=== PATIENT | male | born 1960 | race Caucasian/White ===

== ENCOUNTER 2018-08-03 05:38 | Inpatient (IN) | payer BC, OTHER ==
[2018-08-03] VITALS (8 sets, daily range): BP systolic 124–165; BP diastolic 76–94
[~2018-08-03] VITALS: Ht 177.8 cm; Wt 90.2 kg
[2018-08-03] MEDS ORDERED: LIPI20TA PO (05:43)
[2018-08-03] MEDS ORDERED: gas x PO (05:43)
[2018-08-03] MEDS ORDERED: ONDANSETRON 4MG/2ML VIAL (J2405) IV ONE ×2 (06:30→07:15)
[2018-08-03] MEDS ORDERED: NS 1,000 ML IV ONE ×3 (06:30→09:00)
[2018-08-03 06:45] LABS: BASO % 0.3 % (0.0-1.0); HEMOGLOBIN 15.9 g/dl (13.5-17.5); LYMPH % 9.3 % (24.0-44.0); MEAN CORPUSCULAR HEMOGLOBIN 30.4 pg (27.0-33.0); MEAN CORPUSCULAR HGB CONC 33.8 g/dl (32.0-36.5); MEAN CORPUSCULAR VOLUME 89.9 fl (80.0-96.0); MONO # 1.2 10^3/uL (0.0-0.8); MONO % 10.6 % (0.0-5.0); NEUTROPHILS # 8.7 10^3/uL (1.8-7.7); NEUTROPHILS % 79.4 % (36.0-66.0); PLATELET COUNT, AUTOMATED 194 10^3/uL (150-450); RED BLOOD COUNT 5.23 10^6/uL (4.30-6.10)
[2018-08-03 07:08] LABS: ALBUMIN 4.3 GM/DL (3.2-5.2); BILIRUBIN,DIRECT 0.3 MG/DL (0.0-0.2); BILIRUBIN,TOTAL 1.1 MG/DL (0.2-1.0); TOTAL PROTEIN 7.6 GM/DL (6.4-8.2)
[2018-08-03] MEDS ORDERED: MORPHINE 4 MG/ML 1ML VIAL/SYRINGE (J2270) IV ONE ×2 (07:15→08:45)
[2018-08-03] MEDS ORDERED: ISOVUE-370 76% 100ML VIAL (Q9967) As Ordered ONE (07:15)
[2018-08-03] MEDS ORDERED: IPRATROPIUM 0.5MG/ALBUTEROL 2.5MG INH SOL UD 3ML (DUONEB)(J7620) NEB ONE (08:15)
[2018-08-03] MEDS ORDERED: ALBUTEROL SULFATE 2.5 MG/0.5 ML INH NEB SOLN INH ONE (08:15)
[2018-08-03] MEDS ORDERED: LIDOCAINE 2% 5ML JELLY UROJET TOP ONE (08:15)
[2018-08-03 08:23] LABS: ABG BASE EXCESS -3.9 (-2.0-2.0); ABG HCO3 19.6 MEQ/L (22.0-26.0); ABG O2 SATURATION 96.4 % (95.0-99.0); ABG PARTIAL PRESSURE CO2 31.7 mmHg (35.0-45.0); ABG STANDARD HCO3 21.2 MEQ/L (22.0-26.0); ABG TOTAL CO2 20.5 MEQ/L (22.0-29.0); ABG pH (ARTERIAL) 7.408 UNITS (7.350-7.450)
--- NOTE | 2018-08-03 08:31 | REP ---
Clinical: Chest pain. Comparison: 12/27/2016. Findings: Mediastinum and cardiac silhouette normal. Subtle scattered atelectasis involving the left mid to lower lung zone suggested. No effusion. No pneumothorax. Skeletal structures intact. Impression: Left-sided atelectasis. Electronically Signed by Shayan Jara MD 08/03/2018 08:23 A
--- NOTE | 2018-08-03 08:44 | REP ---
Clinical: Abdominal pain. Technique: Add axial contrast enhanced images from the lung bases to the pubic symphysis duc Stark 100 ml Isovue 370 intravenous contrast material with coronal and sagittal re-formations. Findings: Inflammatory stranding in the pelvis extending into the right lower quadrant surrounds a mildly dilated enhancing appendix measuring up to 11 mm and consistent with acute appendicitis. Terminal ileum and cecum appear otherwise normal. The remainder of the small and large bowel is grossly unremarkable although scattered colonic and sigmoid diverticula are identified. There is no evidence for bowel obstruction and no significant drainable collection/abscess. Fatty infiltration to the liver noted. Spleen, pancreas, gallbladder, bilateral adrenal glands and kidneys are normal. Further evaluation of the pelvis demonstrates enlarged prostate gland with mass effect on the bladder. Abdominal aorta and vasculature without aneurysm or dissection. Musculoskeletal structures demonstrate age-related degenerative changes. Impression: Findings compatible with acute appendicitis as described above. Electronically Signed by Shayan Jara MD 08/03/2018 08:36 A
[2018-08-03] MEDS ORDERED: PIPERACILLIN/TAZOBACTAM SOD 4.5 GM in D5W MINI-BAG PLUS 50 ML IV ONE (08:45)
[2018-08-03] MEDS ORDERED: NS 700 ML IV ONE (09:00)
[2018-08-03] MEDS ORDERED: metFORMIN (GLUCOPHAGE) 500 MG TAB PO SCH (09:00)
[2018-08-03] MEDS ORDERED: LIDOCAINE 1% SDV INJ 30 ML VIAL As Ordered ONE (09:05)
[2018-08-03] MEDS ORDERED: BUPIVACAINE HCL 0.25% 30 ML VIAL As Ordered ONE (09:05)
[2018-08-03] MEDS ORDERED: OMEP40CA2 PO (09:12)
[2018-08-03] MEDS ORDERED: CRES40TA PO (09:12)
[2018-08-03] MEDS ORDERED: GEMF600T5 PO (09:12)
[2018-08-03] MEDS ORDERED: SILD100T PO (09:12)
[2018-08-03] MEDS ORDERED: VITAD1000T PO (09:12)
[2018-08-03] MEDS ORDERED: METF-839 PO (09:12)
[2018-08-03] MEDS ORDERED: SIME125T PO (09:12)
[2018-08-03] MEDS ORDERED: PROPOFOL 200 MG/20 ML VIAL As Ordered ONE (09:17)
[2018-08-03] MEDS ORDERED: ROCURONIUM BROMIDE 50 MG/5 ML VIAL As Ordered ONE (09:17)
[2018-08-03] MEDS ORDERED: dexameTHASONE 4 MG/ML 1ML VIAL (J1100) As Ordered ONE (09:17)
[2018-08-03] MEDS ORDERED: LIDOCAINE 2% INJ 100 MG/5 ML SDV (FOR ANES.) As Ordered ONE (09:17)
[2018-08-03] MEDS ORDERED: ONDANSETRON 4MG/2ML VIAL (J2405) As Ordered ONE (09:17)
[2018-08-03] MEDS ORDERED: MIDAZOLAM INJ 2 MG/2 ML VIAL (J2250) As Ordered ONE (09:18)
[2018-08-03] MEDS ORDERED: SUGAMMADEX SODIUM 500 MG/5 ML VIAL (BRIDION) As Ordered ONE (09:18)
[2018-08-03] MEDS ORDERED: fentaNYL 100 MCG/2 ML INJECTION (J3010) As Ordered ONE ×2 (09:18→10:55)
--- NOTE | 2018-08-03 09:54 | HPEPDOC ---
General Surgery H&P Date of Admission Aug 03, 2018 Attending Physician: BREANNE LYN MD History and Physical CHIEF COMPLAINT: abdominal pain HISTORY OF PRESENT ILLNESS: Patient presents to the emergency room at approximately 6 AM this morning with complaints of low overnight history of increasing abdominal discomfort that started roughly at about 5 PM yesterday. He reports he was in his usual state of health. He ate hamburger at about 3 PM. He denies any sick contacts or any other family members that are sec. He started having crampy upper quadrant abdominal pain which progressed through the night with multiple episodes of vomiting and that roughly about 2 AM the pain shifted towards both lower abdomens with increasing pain and discomfort and becoming sharp and constant. He denies any associated fever. does report a couple of episodes about 3 times within the past few months where he starts having this abdominal pain nausea and vomiting that would resolve after a few hours. They're wondering if this was the same pathology causing his problems. He has had previous colonoscopy done last one w as done in May when they did polypectomies. He has no other abdominal surgeries. ALLERGIES: Please see below. HOME MEDICATIONS: Please see below. PAST MEDICAL HISTORY: 1. hypercholesterolemia 2. GERD 3. Prediabetes 4. PAST SURGICAL HISTORY: 1. Colonoscopy 2. left leg surgery - he broke his left leg and had pins placed this was subsequently removed 3. right knee surgery - arthroscopic surgery PERSONAL/SOCIAL HISTORY: Denies smoking, alcohol use, or recreational drug use. REVIEW OF SYSTEMS: GENERAL: Symptoms are less than 24 hours duration otherwise he was in his usual state of health. HEENT: Denies blurred vision and double vision. Denies ear symptoms. Denies hoarseness. NECK: Denies any neck pain. CARDIOVASCULAR: Denies chest pain and palpitations. MUSCULOSKELETAL: Denies arthralgias, back pain and thrombophlebitis. SKIN: Denies rash. NEUROLOGIC: Denies headache, stroke and transient ischemic attack. PSYCHIATRIC: Denies anxiety and depression. ENDOCRINE: Denies thyroid disease. HEMATOLOGY/ONCOLOGY: Denies any bleeding or clotting disorder. HEART: Denies any chest pains, palpitations, paroxysmal dyspnea, orthopnea. PULMONARY: Denies chronic cough, dyspnea and wheezing. GASTROINTESTINAL: See HPI. GENITOURINARY: Denies dysuria, frequency, hematuria and nocturia. ENDOCRINE: Denies polydipsia, polyphagia, polyuria, heat or cold intolerance. INFECTIOUS: Denies any recent upper respiratory tract infection, UTI, need for use of antibiotics. NUTRITION: Reports good appetite. PHYSICAL EXAMINATION: VITAL SIGNS: Please see below. GENERAL APPEARANCE: Patient sitting up on the stretcher appears moderately uncomfortable. Awake, alert, oriented. HEENT: Normocephalic, atraumatic. [place] palpebral conjunctivae. Anicteric sclerae. Lips dry. CHEST: No chest wall abnormalities. Normal respiratory motion/effort. NECK: Supple. No thyromegaly. No lymphadenopathies. LUNGS: Lung sounds are clear to auscultation bilaterally. No wheezing appreciated. HEART: Heart rate slightly tachycardic, regular rhythm, no murmurs ABDOMEN: Moderately obese, markedly rounded abdomen, moderately distended. Soft. Very tiny umbilical hernia. No surgical scars. He is moderately tender over the suprapubic and right lower quadrant area with mild guarding. SKIN: Warm and dry. EXTREMITIES: Extremities have no deformities. No edema identified. NEUROLOGICAL: Awake, alert, oriented. ANCILLARIES: . LABORATORY DATA: Please see below. MICROBIOLOGY: Please see below. IMAGING: CT abdomen and pelvis Inflammatory stranding in the pelvis extending into the right lower quadrant surrounds a mildly dilated enhancing appendix measuring up to 11 mm and consistent with acute appendicitis. Terminal ileum and cecum appear otherwise normal. The remainder of the small and large bowel is grossly unremarkable although scattered colonic and sigmoid diverticula are identified. There is no evidence for bowel obstruction and no significant drainable collection/abscess. IMPRESSION AND PLAN: Acute Appendicitis Patient's history and clinical exam consistent with most likely acute appendicitis. He is most tender over the right lower quadrant area with guarding over the area with some extension of tenderness over the suprapubic area. He may have component of ileus his abdomen appears to me is moderately distended but soft. Though looking on the CT the stomach is moderately fluid-filled with the small bowel does not seem to be very distended at all. There is a good amount of associated inflammation may be free fluid over the right lower quadrant area surrounding the appendix so there is a possibility of perforation there is no abscess formation as of yet. They think he should still despite the possibility of perforation would benefit from performing laparoscopic appendectomy. I discussed with the patient the details of the proposed procedure, the benefits of performing the procedure, the most common risks on doing the procedure. This may include risks of bleeding, infection, subsequent abscess formation, injury to nearby bowels and blood vessels, hernia formation, need for other procedures or surgeries. I have given him a chance to ask questions, voice out concerns. Patient has agreed to proceed. He has been given a dose of Zosyn 3.375 g IV in the emergency room which should be adequate coverage for him. Vital Signs Vital Signs Date Time Temp Pulse Resp B/P (MAP) Pulse Ox O2 Delivery O2 Flow Rate FiO2 08/03/18 08:40 18 08/03/18 08:09 99.3 94 130/69 (89) 92 Room Air Laboratory Data Labs 24H Laboratory Tests 2 08/03/18 06:35: Immature Granulocyte % (Auto) 0.4, White Blood Count 11.0H, Red Blood Count 5.23, Hemoglobin 15.9, Hematocrit 47.0, Mean Corpuscular Volume 89.9, Mean Corpuscular Hemoglobin 30.4, Mean Corpuscular Hemoglobin Concent 33.8, Red Cell Distribution Width 14.1, Platelet Count 194, Neutrophils (%) (Auto) 79.4H, Lymphocytes (%) (Auto) 9.3L, Monocytes (%) (Auto) 10.6H, Eosinophils (%) (Auto) 0.0, Basophils (%) (Auto) 0.3, Neutrophils # (Auto) 8.7H, Lymphocytes # (Auto) 1.0L, Monocytes # (Auto) 1.2H, Eosinophils # (Auto) 0.0, Basophils # (Auto) 0.0, Nucleated Red Blood Cells % (auto) 0.0, Aspartate Amino Transf (AST/SGOT) 28, Alanine Aminotransferase (ALT/SGPT) 59, Alkaline Phosphatase 76, Total Bilirubin 1.1H, Direct Bilirubin 0.3H, Total Protein 7.6, Albumin 4.3, Albumin/Globulin Ratio 1.30, Lipase 98 08/03/18 06:49: POC Glucose (Misc Panel) 187H, POC Sodium (Misc Panel) 139, POC Potassium (Misc Panel) 4.1, POC Chloride (Misc Panel) 102, POC Total CO2 (Misc Panel) 23.0, POC Blood Urea Nitrogen (Misc Panel 16, POC Ionized Calcium (Misc Panel) 4.8, POC Creatinine (Misc Panel) 1.0, POC Hematocrit (Misc Panel) 47.0 08/03/18 07:00: Lactic Acid Level 2.3*H 08/03/18 08:11: Blood Gas Bicarbonate Standard 21.2L, Arterial Blood pH 7.408, Arterial Blood Partial Pressure CO2 31.7L, Arterial Blood Partial Pressure O2 87.0, Arterial Blood Total CO2 20.5L, Arterial Blood HCO3 19.6L, Arterial Blood Base Excess - 3.9L, Arterial Blood Oxygen Saturation 96.4 08/03/18 08:40: CBC/BMP Laboratory Tests 08/03/18 06:35 Red Blood Count 5.23, Mean Corpuscular Volume 89.9, Mean Corpuscular Hemoglobin 30.4, Mean Corpuscular Hemoglobin Concent 33.8, Red Cell Distribution Width 14.1, Neutrophils (%) (Auto) 79.4 H, Lymphocytes (%) (Auto) 9.3 L, Monocytes (%) (Auto) 10.6 H, Eosinophils (%) (Auto) 0.0, Basophils (%) (Auto) 0.3, Neutrophils # (Auto) 8.7 H, Lymphocytes # (Auto) 1.0 L, Monocytes # (Auto) 1.2 H, Eosinophils # (Auto) 0.0, Basophils # (Auto) 0.0 Microbiology Microbiology 08/03/18 Blood Culture, Received Pending 08/03/18 Blood Culture, Received Pending Home Medications Scheduled Gemfibrozil (Gemfibrozil) 600 Mg Tablet, 600 MG PO BID, (Reported) Metformin HCl (Metformin HCl) 500 Mg Tablet, 500 MG PO DAILY, (Reported) Omeprazole (Omeprazole) 40 Mg Capsule.dr, 80 MG PO DAILY, (Reported) Rosuvastatin Calcium (Crestor) 40 Mg Tablet, 40 MG PO DAILY, (Reported) Vitamin D (Vitamin D3) 1,000 Unit Tablet, 1,000 UNITS PO DAILY, (Reported) Scheduled PRN Sildenafil Citrate (Sildenafil Citrate) 100 Mg Tablet, 100 MG PO ASDIRECTED PRN for ERECTILE DYSFUNCTION, (Reported) Simethicone (Gas-X) 125 Mg Tab.chew, 125 MG PO PRN PRN for GAS PAIN, (Reported) Allergies Coded Allergies: No Known Allergies (Unverified , 08/03/18) BREANNE LYN MD Aug 03, 2018 08:49
[2018-08-03] MEDS ORDERED: SUCCINYLCHOLINE 100 MG/5 ML SYRINGE (J0330) As Ordered ONE (10:08)
[2018-08-03] MEDS ORDERED: PHENYLephrine HCL 500 MCG/5 ML (100MCG/ML) SYRINGE (J2370) As Ordered ONE (10:32)
[2018-08-03] MEDS ORDERED: KETOROLAC 60 MG/2 ML VIAL (J1885) As Ordered ONE (10:59)
[2018-08-03] MEDS ORDERED: ACETAMINOPHEN 1000MG 100ML IV BTL (OFIRMEV) (J0131 PER 10MG) As Ordered ONE (10:59)
[2018-08-03] MEDS ORDERED: LR 1,000 ML IV SCH ×2 (11:18→12:15)
--- NOTE | 2018-08-03 11:29 | ROOPDOC ---
[facility] Report Of Operation Report of Operation DATE OF PROCEDURE: 08/03/18 REOPERATIVE DIAGNOSIS: Acute Appendicitis POSTOPERATIVE DIAGNOSIS: Acute Perforated Appendicitis FINDINGS: inflamed appendix throughout its course, perforation near the base of the appendix noted, short inflamed and thickened mesoappendix, small amount of purulent thick fluid in the right gutter, right side fo pelvis. Incidental finding of right inguinal hernia defect PROCEDURE: Laparoscopic Appendectomy SURGEON: Chad Beth MD ANESTHESIA: General Anesthesia SPECIMENS: appendix ESTIMATED BLOOD LOSS: 20 mLs DRAINS: 19 Rk Drain COMPLICATIONS: none POSTOPERATIVE CONDITION: stable, extubated to PACU 58 M with overnight history of increasing abdominal pain, tenderness over right lower quadrant area and suprapubic area, WBC 11,000. CT evidence for acute appendicitis. He is brought to the OR for Laparoscopic Appendectomy DESCRIPTION OF PROCEDURE: CHAD BETH MD Aug 03, 2018 11:29
[2018-08-03] MEDS ORDERED: ONDANSETRON 4MG/2ML VIAL (J2405) IV PRN ×2 (11:30→12:15)
[2018-08-03] MEDS ORDERED: MORPHINE 4 MG/ML 1ML VIAL/SYRINGE (J2270) IV PRN ×2 (11:30)
[2018-08-03] MEDS ORDERED: PERCOCET 5MG/325MG TAB PO PRN (11:30)
[2018-08-03] MEDS ORDERED: fentaNYL 100 MCG/2 ML INJECTION (J3010) IV PRN (12:15)
[2018-08-03] MEDS: ENOXAPARIN 40 MG/0.4 ML SYRINGE (J1650) SC SCH (13:31)
[2018-08-03] MEDS: OMEPRAZOLE 20 MG CAP PO SCH (13:32)
[2018-08-03] MEDS: VITAMIN D 1,000 INTERNATIONAL UNITS TABLET PO SCH (13:32)
[2018-08-03] MEDS: SENOKOT S TAB PO SCH ×2 (13:32→20:37)
[2018-08-03] MEDS: PERCOCET 5MG/325MG TAB PO PRN (13:33)
[2018-08-03] MEDS: PIPERACILLIN/TAZOBACTAM SOD 3.375 GM in D5W MINI-BAG PLUS 50 ML IV SCH ×2 (14:46→20:37)
[2018-08-03] MEDS: ROSUVASTATIN 10 MG TAB (CRESTOR) PO SCH (15:11)
[2018-08-03] MEDS: GEMFIBROZIL 600 MG TAB PO SCH ×2 (15:11→20:37)
[2018-08-03] MEDS: KETOROLAC 30 MG/ML VIAL (J1885) IV PRN (17:49)
[2018-08-04] VITALS: BP 146/81
[2018-08-04] MEDS: PIPERACILLIN/TAZOBACTAM SOD 3.375 GM in D5W MINI-BAG PLUS 50 ML IV SCH ×4 (03:48→21:53)
[2018-08-04 04:00] VITALS: BP 117/68
[2018-08-04 06:58] LABS: BASO % 0.1 % (0.0-1.0); LYMPH # 1.9 10^3/uL (1.5-4.5); LYMPH % 17.1 % (24.0-44.0); MEAN CORPUSCULAR HEMOGLOBIN 30.6 pg (27.0-33.0); MEAN CORPUSCULAR HGB CONC 33.3 g/dl (32.0-36.5); MONO # 0.8 10^3/uL (0.0-0.8); MONO % 7.6 % (0.0-5.0); NEUTROPHILS # 8.2 10^3/uL (1.8-7.7); NEUTROPHILS % 74.8 % (36.0-66.0); PLATELET COUNT, AUTOMATED 174 10^3/uL (150-450); RED BLOOD COUNT 4.35 10^6/uL (4.30-6.10)
[2018-08-04 07:05] LABS: HEMOGLOBIN 13.3 g/dl (13.5-17.5)
[2018-08-04 07:16] LABS: BLOOD UREA NITROGEN 14 MG/DL (7-18); CALCIUM LEVEL 8.6 MG/DL (8.5-10.1); CARBON DIOXIDE LEVEL 24 MEQ/L (21-32); CHLORIDE LEVEL 109 MEQ/L (98-107); CREATININE FOR GFR 1.02 MG/DL (0.70-1.30); GLOMERULAR FILTRATION RATE > 60.0 (>56); GLUCOSE, FASTING 124 MG/DL (70-100); POTASSIUM SERUM 4.2 MEQ/L (3.5-5.1); SODIUM LEVEL 140 MEQ/L (136-145)
--- NOTE | 2018-08-04 07:49 | IPNPDOC ---
Subjective General Date/Time Seen The patient was seen on 08/04/18 at 07:48. Subject Chief Complaint/History The patient is a 58-year-old male admitted with a reason for visit of Acute Appendicitis. Current Medications Current Medications Current Medications Enoxaparin Sodium (Lovenox) 40 mg DAILY SC Last administered on 08/03/18at 13:31; Start 08/03/18 at 09:00 Fentanyl Citrate (Sublimaze) 25 mcg Q5MP PRN IV MODERATE PAIN (PS 4-7); Start 08/03/18 at 12:15; Stop 08/03/18 at 13:15; Status DC Gemfibrozil (Lopid) 600 mg BID PO Last administered on 08/03/18at 20:37; Start 08/03/18 at 09:00 Home Med (Med Rec Complete!) ASDIRECTED XX ; Start 08/03/18 at 09:15; Stop at 09:20; Status DC Ketorolac Tromethamine (ToRADol) 30 mg Q6HP PRN IV MILD/MODERATE PAIN (PS 1-7) Last administered on 08/03/18at 17:49; Start 08/03/18 at 11:30; Stop 08/08/18 at 11:29 Lactated Ringer's 1,000 ml @ 100 mls/hr Q10H IV Last administered on 08/03/18at 11:34; Start 08/03/18 at 12:15; Stop 08/03/18 at 13:15; Status DC Lactated Ringer's 1,000 ml @ 125 mls/hr Q8H IV Last administered on 08/03/18at 12:27; Start 08/03/18 at 11:18; Stop 08/03/18 at 18:28; Status DC Metformin HCl (Glucophage) 500 mg DAILY PO ; Start 08/03/18 at 09:00; Status Cancel Metformin HCl (Glucophage) 500 mg DAILY@0800 PO ; Start 08/05/18 at 08:00 Morphine Sulfate (Morphine Sulfate Inj) 2 mg Q2HP PRN IV SEVERE PAIN (PS 8-10); Start 08/03/18 at 11:30 Morphine Sulfate (Morphine Sulfate Inj) 4 mg Q2HP PRN IV SEVERE PAIN (PS 8-10); Start 08/03/18 at 11:30 Omeprazole (PriLOSEC) 80 mg DAILY PO Last administered on 08/03/18at 13:32; Start 08/03/18 at 09:00 Ondansetron HCl (ZOFRAN INJection) 4 mg Q4HP PRN IV NAUSEA OR VOMITING; Start 08/03/18 at 12:15; Stop 08/03/18 at 13:15; Status DC Ondansetron HCl (ZOFRAN INJection) 4 mg Q6HP PRN IV NAUSEA OR VOMITING; Start 08/03/18 at 11:30 Oxycodone/ Acetaminophen (Percocet 5mg/ 325mg Tablet) 1 tab Q4HP PRN PO MODERATE PAIN (PS 5-7) Last administered on 08/03/18at 13:33; Start 08/03/18 at 11:30 Oxycodone/ Acetaminophen (Percocet 5mg/ 325mg Tablet) 2 tab Q6HP PRN PO SEVERE PAIN (PS 8-10); Start 08/03/18 at 11:30 Piperacillin Sod/ Tazobactam Sod 3.375 gm/Dextrose 50 ml @ 50 mls/hr Q6H IV Last administered on 08/04/18at 03:48; Start 08/03/18 at 15:00 Rosuvastatin Calcium (Crestor) 40 mg DAILY PO ; Start 08/03/18 at 09:00 Senna/Docusate Sodium (Senokot S) 1 tab BID PO Last administered on 08/03/18at 20:37; Start 08/03/18 at 09:00 Vitamin D (Vitamin D) 1,000 units DAILY PO Last administered on 08/03/18 13:32; Start 08/03/18 at 09:00 Allergies Coded Allergies: No Known Allergies (Unverified , 08/03/18) Objective Physical Examination Examination GENERAL APPEARANCE:[Patient seen, laying in bed, awake, alert, and oriented. Comfortable, in no acute distress]. SKIN: [Warm and moist]. HEENT: [Normocephalic, atraumatic. [place] palpebral conjunctiva, anicteric sclerae. Lips and mucosa appear moist]. NECK: [Supple, no thyromegaly. No obvious jugular venous distention]. LUNGS: [Clear to auscultation bilaterally. No wheezing appreciated]. HEART: [No chest wall abnormalities. Regular rate and rhythm with no murmurs appreciated]. ABDOMEN: Abdomen is , soft, . [No hepatosplenomegaly. No umbilical or groin herniations, nondistended. No noticeable rebound or guarding. No grimacing with palpation. No rebound tenderness. No masses appreciated]. EXTREMITIES: [Extremities have no deformities. No edema identified]. Vital Signs Vital Signs Date Time Temp Pulse Resp B/P (MAP) Pulse Ox O2 Delivery O2 Flow Rate FiO2 08/04/18 04:00 1.0 08/04/18 04:00 98.3 89 18 117/68 (84) 95 08/03/18 08:09 Room Air I&Os I&O- Last 24 Hours up to 6 AM 08/04/18 06:00 Intake Total 5850 ml Output Total 2415 ml Balance 3435 ml Laboratory Data Labs 24H Laboratory Tests 2 08/03/18 08:11: Blood Gas Bicarbonate Standard 21.2L, Arterial Blood pH 7.408, Arterial Blood Partial Pressure CO2 31.7L, Arterial Blood Partial Pressure O2 87.0, Arterial Blood Total CO2 20.5L, Arterial Blood HCO3 19.6L, Arterial Blood Base Excess - 3.9L, Arterial Blood Oxygen Saturation 96.4 08/03/18 08:40: Urine Color YELLOW, Urine Appearance CLEAR, Urine pH 6.0, Urine Specific [place] >1.060H, Urine Protein NEGATIVE, Urine Glucose (UA) NEGATIVE, Urine Ketones 1+H, Urine Blood NEGATIVE, Urine Nitrite NEGATIVE, Urine Bilirubin NEGATIVE, Urine Urobilinogen 0.2, Urine Leukocyte Esterase NEGATIVE, Urine WBC (Auto) 0, Urine RBC (Auto) 1, Urine Hyaline Casts (Auto) 0, Urine Bacteria (Auto) NEGATIVE, Urine Squamous Epithelial Cells 0, Urine Mucus (Auto) SMALL, Urine Sperm (Auto) 08/03/18 11:52: Lactic Acid Followup at 4 Hours 3.4*H 08/04/18 06:19: Immature Granulocyte % (Auto) 0.4, White Blood Count 11.0H, Red Blood Count 4.35, Hemoglobin 13.3#L, Hematocrit 40.0L, Mean Corpuscular Volume 92.0, Mean Corpuscular Hemoglobin 30.6, Mean Corpuscular Hemoglobin Concent 33.3, Red Cell Distribution Width 14.7H, Platelet Count 174, Neutrophils (%) (Auto) 74.8H, Lymphocytes (%) (Auto) 17.1L, Monocytes (%) (Auto) 7.6H, Eosinophils (%) (Auto) 0.0, Basophils (%) (Auto) 0.1, Neutrophils # (Auto) 8.2H, Lymphocytes # (Auto) 1.9, Monocytes # (Auto) 0.8, Eosinophils # (Auto) 0.0, Basophils # (Auto) 0.0, Nucleated Red Blood Cells % (auto) 0.0, Anion Gap 7L, Glomerular Filtration Rate > 60.0, Blood Urea Nitrogen 14, Creatinine 1.02, Sodium Level 140, Potassium Level 4.2, Chloride Level 109H, Carbon Dioxide Level 24, Calcium Level 8.6 CBC/BMP Laboratory Tests 08/04/18 06:19 Red Blood Count 4.35, Mean Corpuscular Volume 92.0, Mean Corpuscular Hemoglobin 30.6, Mean Corpuscular Hemoglobin Concent 33.3, Red Cell Distribution Width 14.7 H, Neutrophils (%) (Auto) 74.8 H, Lymphocytes (%) (Auto) 17.1 L, Monocytes (%) (Auto) 7.6 H, Eosinophils (%) (Auto) 0.0, Basophils (%) (Auto) 0.1, Neutrophils # (Auto) 8.2 H, Lymphocytes # (Auto) 1.9, Monocytes # (Auto) 0.8, Eosinophils # (Auto) 0.0, Basophils # (Auto) 0.0, Calcium Level 8.6 Microbiology Microbiology 08/03/18 Blood Culture - Preliminary, Resulted No growth after 24 hours . All specim... 08/03/18 Blood Culture - Preliminary, Resulted No growth after 24 hours . All specim... 08/03/18 Gram Stain, Received Pending 08/03/18 Body Fluid Culture, Received Pending 08/03/18 Anaerobic Culture, Received Pending Impression POD1 Laparoscopic Appendectomy for Perforated Appendicitis Doing well advance diet ambulate Continue IV antibiotics Continue to watch the drain Plan / VTE VTE Prophylaxis Ordered?: Yes BREANNE LYN MD Aug 04, 2018 07:49
[2018-08-04 08:00] VITALS: BP 135/75
[2018-08-04] MEDS: VITAMIN D 1,000 INTERNATIONAL UNITS TABLET PO SCH (08:28)
[2018-08-04] MEDS: SENOKOT S TAB PO SCH ×2 (08:28→21:54)
[2018-08-04] MEDS: ROSUVASTATIN 10 MG TAB (CRESTOR) PO SCH (08:28)
[2018-08-04] MEDS: GEMFIBROZIL 600 MG TAB PO SCH ×2 (08:28→21:54)
[2018-08-04] MEDS: ENOXAPARIN 40 MG/0.4 ML SYRINGE (J1650) SC SCH (08:29)
[2018-08-04] MEDS: OMEPRAZOLE 20 MG CAP PO SCH (08:29)
[2018-08-04 12:00] VITALS: BP 120/56
[2018-08-04] MEDS: PERCOCET 5MG/325MG TAB PO PRN (14:06)
[2018-08-04 16:00] VITALS: BP 111/61
[2018-08-04] MEDS: KETOROLAC 30 MG/ML VIAL (J1885) IV PRN (22:08)
[2018-08-05] VITALS: BP 127/79
[2018-08-05] MEDS: PIPERACILLIN/TAZOBACTAM SOD 3.375 GM in D5W MINI-BAG PLUS 50 ML IV SCH ×2 (03:47→08:18)
[2018-08-05] MEDS: KETOROLAC 30 MG/ML VIAL (J1885) IV PRN (03:47)
[2018-08-05 05:40] LABS: BASO % 0.5 % (0.0-1.0); EOS # 0.1 10^3/uL (0.0-0.50); EOS % 1.3 % (0.0-3.0); HEMATOCRIT 39.4 % (42.0-52.0); LYMPH # 2.5 10^3/uL (1.5-4.5); MEAN CORPUSCULAR HEMOGLOBIN 29.7 pg (27.0-33.0); MEAN CORPUSCULAR VOLUME 90.2 fl (80.0-96.0); MONO # 0.8 10^3/uL (0.0-0.8); MONO % 9.7 % (0.0-5.0); NEUTROPHILS # 5.1 10^3/uL (1.8-7.7); NEUTROPHILS % 59.1 % (36.0-66.0); PLATELET COUNT, AUTOMATED 167 10^3/uL (150-450); RED BLOOD COUNT 4.37 10^6/uL (4.30-6.10); WHITE BLOOD COUNT 8.5 10^3/uL (4.0-10.0)
[2018-08-05 06:05] LABS: BLOOD UREA NITROGEN 18 MG/DL (7-18); CALCIUM LEVEL 8.6 MG/DL (8.5-10.1); CARBON DIOXIDE LEVEL 24 MEQ/L (21-32); CHLORIDE LEVEL 108 MEQ/L (98-107); CREATININE FOR GFR 1.17 MG/DL (0.70-1.30); GLOMERULAR FILTRATION RATE > 60.0 (>56); GLUCOSE, FASTING 98 MG/DL (70-100); POTASSIUM SERUM 3.8 MEQ/L (3.5-5.1); SODIUM LEVEL 140 MEQ/L (136-145)
[2018-08-05 08:00] VITALS: BP 135/82
[2018-08-05] MEDS ORDERED: metFORMIN (GLUCOPHAGE) 500 MG TAB PO SCH (08:00)
[2018-08-05] MEDS: ENOXAPARIN 40 MG/0.4 ML SYRINGE (J1650) SC SCH (08:19)
[2018-08-05] MEDS: ROSUVASTATIN 10 MG TAB (CRESTOR) PO SCH (08:19)
[2018-08-05] MEDS: GEMFIBROZIL 600 MG TAB PO SCH (08:19)
[2018-08-05] MEDS: SENOKOT S TAB PO SCH (08:19)
[2018-08-05] MEDS: OMEPRAZOLE 20 MG CAP PO SCH (08:19)
[2018-08-05] MEDS: VITAMIN D 1,000 INTERNATIONAL UNITS TABLET PO SCH (08:19)
[2018-08-05] MEDS ORDERED: AUGM875T28 PO (09:09)
[2018-08-05] MEDS ORDERED: METR-265 PO (09:09)
[2018-08-05] MEDS ORDERED: PERCOCET PO (09:09)
--- NOTE | 2018-08-05 09:11 | DS.PDOC ---
Discharge Summary General Date of Admission Aug 03, 2018 at 09:00 Date of Discharge August 05, 2018 Attending Physician: BREANNE LYN MD Discharge Summary PROCEDURES PERFORMED DURING STAY: [None]. ADMITTING DIAGNOSES: 1. . DISCHARGE DIAGNOSES: 1. . COMPLICATIONS/CHIEF COMPLAINT: Acute Appendicitis. HISTORY OF PRESENT ILLNESS: . HOSPITAL COURSE: . DISCHARGE MEDICATIONS: Please see below. ALLERGIES: Please see below. PHYSICAL EXAMINATION ON DISCHARGE: VITAL SIGNS: Please see below. GENERAL: HEENT: NECK: CARDIOVASCULAR EXAMINATION: RESPIRATORY EXAMINATION: ABDOMINAL EXAMINATION: EXTREMITIES: SKIN: NEUROLOGICAL EXAMINATION: PSYCHIATRIC EXAMINATION: LABORATORY DATA: Please see below. IMAGING: PROGNOSIS: ACTIVITY: [As tolerated]. DIET: DISCHARGE PLAN: DISPOSITION: . DISCHARGE INSTRUCTIONS: 1. . ITEMS TO FOLLOWUP ON ON OUTPATIENT: 1. . DISCHARGE CONDITION: [Stable]. TIME SPENT ON DISCHARGE: Greater than minutes. Vital Signs/I&Os Vital Signs Date Time Temp Pulse Resp B/P (MAP) Pulse Ox O2 Delivery O2 Flow Rate FiO2 08/05/18 08:00 98.0 95 19 135/82 (99) 96 08/04/18 04:00 1.0 08/03/18 08:09 Room Air I&O- Last 24 Hours up to 6 AM 08/05/18 06:00 Intake Total 1400 ml Output Total 1477 ml Balance -77 ml Laboratory Data Labs 24H Laboratory Tests 2 08/05/18 05:26: Immature Granulocyte % (Auto) 0.4, White Blood Count 8.5, Red Blood Count 4.37, Hemoglobin 13.0L, Hematocrit 39.4L, Mean Corpuscular Volume 90.2, Mean Corpuscular Hemoglobin 29.7, Mean Corpuscular Hemoglobin Concent 33.0, Red Cell Distribution Width 14.9H, Platelet Count 167, Neutrophils (%) (Auto) 59.1, Lymphocytes (%) (Auto) 29.0, Monocytes (%) (Auto) 9.7H, Eosinophils (%) (Auto) 1.3, Basophils (%) (Auto) 0.5, Neutrophils # (Auto) 5.1, Lymphocytes # (Auto) 2.5, Monocytes # (Auto) 0.8, Eosinophils # (Auto) 0.1, Basophils # (Auto) 0.0, Nucleated Red Blood Cells % (auto) 0.0, Anion Gap 8, Glomerular Filtration Rate > 60.0, Blood Urea Nitrogen 18, Creatinine 1.17, Sodium Level 140, Potassium Level 3.8, Chloride Level 108H, Carbon Dioxide Level 24, Calcium Level 8.6 CBC/BMP Laboratory Tests 08/05/18 05:26 Red Blood Count 4.37, Mean Corpuscular Volume 90.2, Mean Corpuscular Hemoglobin 29.7, Mean Corpuscular Hemoglobin Concent 33.0, Red Cell Distribution Width 14.9 H, Neutrophils (%) (Auto) 59.1, Lymphocytes (%) (Auto) 29.0, Monocytes (%) (Auto) 9.7 H, Eosinophils (%) (Auto) 1.3, Basophils (%) (Auto) 0.5, Neutrophils # (Auto) 5.1, Lymphocytes # (Auto) 2.5, Monocytes # (Auto) 0.8, Eosinophils # (Auto) 0.1, Basophils # (Auto) 0.0, Calcium Level 8.6 Microbiology Microbiology 08/03/18 Blood Culture - Preliminary, Resulted No Growth after 48 hours. All Specime... 08/03/18 Blood Culture - Preliminary, Resulted No Growth after 48 hours. All Specime... 08/03/18 Gram Stain - Final, Resulted 08/03/18 Body Fluid Culture - Preliminary, Resulted Escherichia Coli 08/03/18 Anaerobic Culture, Resulted Pending Discharge Medications Scheduled Amoxicillin/Potassium Clav (Augmentin 875-125 Tablet) 1 Each Tablet, 875 MG PO BID Gemfibrozil (Gemfibrozil) 600 Mg Tablet, 600 MG PO BID, (Reported) Metformin HCl (Metformin HCl) 500 Mg Tablet, 500 MG PO DAILY, (Reported) Metronidazole (Metronidazole) 500 Mg Tablet, 500 MG PO TID Omeprazole (Omeprazole) 40 Mg Capsule.dr, 80 MG PO DAILY, (Reported) Rosuvastatin Calcium (Crestor) 40 Mg Tablet, 40 MG PO DAILY, (Reported) Vitamin D (Vitamin D3) 1,000 Unit Tablet, 1,000 UNITS PO DAILY, (Reported) Scheduled PRN Oxycodone/Acetaminophen (Oxycodone-Acetaminophen 5-325) 1 Each Tablet, 1-2 TAB PO Q4-6HP PRN for MODERATE PAIN (PS 5-7) Sildenafil Citrate (Sildenafil Citrate) 100 Mg Tablet, 100 MG PO ASDIRECTED PRN for ERECTILE DYSFUNCTION, (Reported) Simethicone (Gas-X) 125 Mg Tab.chew, 125 MG PO PRN PRN for GAS PAIN, (Reported) Allergies Coded Allergies: No Known Allergies (Unverified , 08/03/18) BREANNE LYN MD Aug 05, 2018 09:11
== END 2018-08-05 10:57 | disposition home or self-care (01) | DRG 225 ==
LOC: M ED 05:38 → M ED INP 09:00 → M PED 12:35
PROVIDERS: ADMIT Surgery; ATTEND Surgery
PROC: 0DTJ4ZZ Resection of Appendix, Percutaneous Endoscopic Approach (ICD-10-PCS; principal; 2018-08-03 08:54)
DX: K35.32 Acute appendicitis with perforation, localized peritonitis, and gangrene, without abscess (principal); K21.9 Gastro-esophageal reflux disease without esophagitis; E78.00 Pure hypercholesterolemia, unspecified; Z79.899 Other long term (current) drug therapy

== ENCOUNTER → 2023-09-27 | Outpatient (CLI) | payer OTHER ==
[~2023-09-27] MED LIST: AUGM875T28 PO; CHOL100029 PO; CRES40TA PO; GEMF600T5 PO; LIPI20TA PO; METF-839 PO; METR-265 PO; OMEP40CA4 PO; PERCOCET PO; SILD100T PO; SIME125T PO; gas x PO
== END ==
LOC: M RAD 14:36
PROVIDERS: ATTEND Physician Assistant Medical
DX: Z12.2 Encounter for screening for malignant neoplasm of respiratory organs (principal); Z87.891 Personal history of nicotine dependence; R91.8 Other nonspecific abnormal finding of lung field

== ENCOUNTER 2024-01-01 07:49 | Day surgery (SDC) | payer OTHER ==
[~2024-01-01] VITALS: Ht 177.8 cm; Wt 91.8 kg
[~2024-01-01 07:49] MED LIST changes: +ERGO500029 PO; +FAMO40TA3 PO; +FLOM0.4C39 PO; +FLUT1BLS2 IH; +LOSA50TA28 PO; +NS 250 ML IV ONE; +PROA1AER2 INH; +TRIC145T22 PO
[2024-01-01] MEDS ORDERED: propofoL 200 MG/20 ML VIAL As Ordered ONE (09:27)
[2024-01-01 10:15] VITALS: BP 122/90; O2SAT 95
== END 2024-01-01 10:25 | disposition home or self-care (01) ==
LOC: M OPP 07:49
PROVIDERS: ATTEND Surgery
DX: Z12.11 Encounter for screening for malignant neoplasm of colon (principal); D12.3 Benign neoplasm of transverse colon; K57.30 Diverticulosis of large intestine without perforation or abscess without bleeding; K21.9 Gastro-esophageal reflux disease without esophagitis; Z86.0100 Personal history of colon polyps, unspecified; Z90.49 Acquired absence of other specified parts of digestive tract; I10 Essential (primary) hypertension; J44.9 Chronic obstructive pulmonary disease, unspecified; E78.00 Pure hypercholesterolemia, unspecified; N40.0 Benign prostatic hyperplasia without lower urinary tract symptoms; Z79.899 Other long term (current) drug therapy

== ENCOUNTER → 2024-05-28 | Outpatient (CLI) | payer OTHER ==
[~2024-05-28] MED LIST changes: -NS 250 ML IV ONE
== END ==
LOC: M RAD 15:09
PROVIDERS: ATTEND Physician Assistant Medical
DX: Z12.2 Encounter for screening for malignant neoplasm of respiratory organs (principal); R91.1 Solitary pulmonary nodule; I25.10 Atherosclerotic heart disease of native coronary artery without angina pectoris; Z87.891 Personal history of nicotine dependence